=== PATIENT | female | born 1995 | race Asian ===

== ENCOUNTER → 2017-04-20 | Day surgery (SDC) | payer BC, OTHER ==
[~2017-04-20] MED LIST: FLU VACC QS2017-18 36 mo. & older 0.5 ML SYRINGE IM ONE
[2017-04-20 13:13] VITALS: BMI 25.1
--- NOTE | 2017-04-20 14:21 | PRG ---
DATE OF SERVICE: 04/20/2017 CHIEF COMPLAINT: Vaginal bleeding. HISTORY OF PRESENT ILLNESS: The patient is a 22-year-old G1, P0 female with an intrauterine at 38 weeks and 1 day, who is presenting to Labor and Delivery today with vaginal bleeding. She reports that she began having spotting last when she had her cervix checked and her membranes swept. She was told that was to be expected. Over the weekend, the patient reported some more spotting with some really small clots as she describes them. She called the office this morning and notified them of her concerns, who again reassured her of these findings with the recommendation to seek evaluation at Labor and Delivery should she have active vaginal bleeding. Shortly after the phone call the patient went to the bathroom and felt like she had felt blood coming from her vagina into the toilet and came here for evaluation. She reports that between her going to the bathroom and her visit with us she had a piece of toilet paper to protect her underwear, which had only some spotting after 2 hours. The patient denies any other leakage of fluid, any change in discharge. She denies any falls or trauma to her belly. She denies any fever, headache, chest pain, shortness of breath, nausea, vomiting, diarrhea. She does report constipation. She denies any new skin rashes. PAST MEDICAL HISTORY: She has a history of gastritis, resulting in a colonoscopy and EGD several years ago and a history of depression in high school. PAST SURGICAL HISTORY: None. OBSTETRIC HISTORY: This is her first . ALLERGIES: PENICILLIN. MEDICATIONS: vitamins. OB LABS: Blood type is B positive, antibody screen is negative. HIV is nonreactive. Third trimester HIV is nonreactive. RPR is nonreactive. Third trimester RPR is nonreactive. Hepatitis B surface antigen is nonreactive. She is rubella immune, one hour Glucola was 105 and GBS status is unavailable at this time. REVIEW OF SYSTEMS: Per HPI. PHYSICAL EXAMINATION: VITAL SIGNS: Blood pressure 132/77, heart rate of 85, respiratory rate of 18, temperature 98.4. GENERAL: She appears to be in no acute distress. She is alert and oriented, and cooperative and pleasant to interact with. HEENT: Head is normocephalic, atraumatic. LUNGS: Clear to auscultation bilaterally. HEART: Regular rate and rhythm. ABDOMEN: Soft, gravid, nontender to palpation. EXTREMITIES: Nontender, nonedematous. The patient has some mild CVA tenderness on her right side which she reports is from a "swollen kidney" She was evaluated previously by her OB for right-sided pain and pyelonephritis and renal lithiasis was ruled out. She does report that her pain is improving. Cervical exam per nursing staff is 2-1/2, 85%, -2 station, which is a change from her reported 2, 75% from last . heart tracing performed for vaginal bleeding for a duration of about 30 minutes, was noted to have a baseline in the 130s with moderate long-term variability, positive accelerations, no decelerations. Tocometer showing some irritability with contractions, the patient is feeling them as some tightness in her abdomen, but no pain. ASSESSMENT AND PLAN: The patient is a 22-year-old G1, P0 female with an intrauterine at 38 weeks and a day with bloody show. The patient has been given reassurance. Her baby has a category 1 tracing with a reactive NST. She has been counseled to keep her appointment with Dr. Chavez as scheduled. CLARITZA
== END ==
LOC: L&D/OP 12:35
PROVIDERS: ATTEND Student in an Organized Health Care Education/Training Program
DX: O46.93 Antepartum hemorrhage, unspecified, third trimester (principal); O99.89 Other specified diseases and conditions complicating pregnancy, childbirth and the puerperium; R10.819 Abdominal tenderness, unspecified site; Z3A.38 38 weeks gestation of pregnancy; Z79.899 Other long term (current) drug therapy; Z88.0 Allergy status to penicillin; Z98.890 Other specified postprocedural states
CPT/HCPCS: J0595

== ENCOUNTER 2017-04-21 07:44 | Inpatient (IN) | payer BC, OTHER ==
[2017-04-21 08:26] VITALS: BMI 25.1
[2017-04-21] MEDS ORDERED: Promethazine HCl 25 MG/ML VIAL IM PRN ×2 (08:46→11:58)
[2017-04-21] MEDS ORDERED: LR / Pitocin 40 units/1000 ml 1,000 ML IV PRN (08:46)
[2017-04-21] MEDS ORDERED: Ibuprofen 800 MG TAB PO PRN (08:46)
[2017-04-21] MEDS ORDERED: Lidocaine 1% (PF) 30 ML VIAL SC PRN (08:46)
[2017-04-21] MEDS ORDERED: HYDROcodone/Acetaminophen 5/325 mg Tablet PO PRN ×3 (08:46→18:58)
--- NOTE | 2017-04-21 08:50 | PDOC.LDHP ---
Labor and Delivery H&P HPI: 22 yo G1 at 38 weeks, patient of Dr Sandy Chavez who was seen in L&D yesterday for latent labor and was 2cm then. Arrives now to L&D with further contractions and noted to be 5cm in triage. Direct admit for Dr Chavez. She has been notified and awaiting response. Patient underwent complete REVIEW OF SYSTEMS and negative for GARCIA, VB, ROM, visual changes, epigastric pain. No issues reported. GBS neg. Current gestational age (weeks): 38 (2 days) Dating criteria: last menstrual period Grav: 1 Para: 0 Current complications: none Abnormal US findings: No Current medications: none Allergies/Adverse Reactions: Allergies Allergy/AdvReac Type Severity Reaction Status Date / Time Penicillins Allergy Severe Verified 04/21/17 08:27 Hives Social history: none - Physical Exam Vital signs reviewed and normal: yes (BP 122/72) Heart: RRR Lungs: nonlabored breathing Abdomen: gravid (EFW approx 6 pounds) FHT: category 1 - Vaginal Exam cm dilated: 5 (BOWI) Effacement: 90% Station: -1 - Assessment L&D Assessment: term patient in labor - Plan Plan: admit to L&D, informed consent obtained, anesthesia consult for pain management, other (Primary MD notified, awaiting confirmation of reciept.)
[2017-04-21] MEDS: Lactated Ringer's 1,000 ML IV SCH ×3 (09:00→13:24)
[2017-04-21 09:45] LABS: Hemoglobin 12.9 g/dL (12.0-16.0); Mean Corpuscular HGB CONC 34.3 g/dL (32.0-36.0); Mean Corpuscular Hemoglobin 29.4 pg (27.0-31.0); Mean Corpuscular Volume 85.7 fl (81.0-99.0); Mean Platelet Volume 8.6 fL (7.4-10.4); Platelet Count 201 thou/uL (130-400); RBC Distribution Width 11.7 % (11.5-14.5); Red Blood Cell (RBC) Count 4.39 mill/uL (4.20-5.40); White Blood Cell (WBC) Count 11.2 thou/uL (4.8-10.8)
[2017-04-21 10:23] LABS: HBSAg Index 0.16 S/CO (0-0.99); HIV (1/2) Antibody/Antigen Non-Reactive (NonReactive); HIV 1/2 INDEX 0.34 S/CO (<1.00); Hep B Surf Ag Non-Reactive S/CO (NonReactive)
[2017-04-21 10:27] LABS: Syphilis Antibody Nonreactive (Nonreactive); Syphilis Antibody Index 0.04 S/CO (<1.00 Non-Reactive)
[2017-04-21] MEDS ORDERED: Fentanyl 4 mcg/Marc 0.1% Cadd 100 ML EPIDURAL SCH (10:45)
[2017-04-21] MEDS ORDERED: Naloxone HCl 0.4 mg/ml Vial IVP PRN ×2 (11:58)
[2017-04-21] MEDS ORDERED: Acetaminophen 325 MG TAB PO PRN (11:58)
[2017-04-21] MEDS ORDERED: diphenhydrAMINE 50 MG/ML VIAL IVP PRN (11:58)
[2017-04-21] MEDS ORDERED: Ondansetron HCl/PF 4 MG/2 ML Vial IVP PRN ×2 (11:58→18:58)
[2017-04-21] MEDS ORDERED: ePHEDrine/0.9% NaCl/PF SYRINGE 50 mg/10 ml SLOW IVP PRN (11:58)
[2017-04-21] MEDS ORDERED: Eucerin (Mineral Oil/Petrolatum,White) 30 gm Jar TOP PRN (11:58)
[2017-04-21] MEDS ORDERED: Lactated Ringer's 500 ML IV PRN (11:58)
[2017-04-21] MEDS ORDERED: Communication Order-Pharmacy FS SCH (12:00)
[2017-04-21] MEDS ORDERED: Fentanyl 4mcg/Marcaine 0.1% Cassette 100 ML EPIDURAL SCH (12:00)
[2017-04-21] MEDS ORDERED: LR 500 ML/Oxytocin 10 units 500 ML ONE (12:31)
[2017-04-21] MEDS ORDERED: Acetaminophen 325 MG TAB PO SCH (12:45)
[2017-04-21] MEDS ORDERED: LR 500 ML/Oxytocin 10 units 500 ML IV SCH (13:00)
[2017-04-21] MEDS ORDERED: FLU VACC QS2017-18 36 mo. & older 0.5 ML SYRINGE IM ONE (14:00)
--- NOTE | 2017-04-21 16:03 | PDOC.OPDEL ---
OB Operative/Delivery Note Delivery Dr/Surgeon: Scott Assist: n/a Pre-Delivery Diagnosis: active labor Procedure/Post Delivery Dx: spontaneous vaginal delivery Weeks gestation: 38 Anesthesia: epidural - Findings A Sex: female - 1 min: 9 - 5 min: 9 - Additional Findings/Plan Placenta delivered: spontaneous Repaired Obstetrical Laceration: 1st degree (repaired with 2-0 vicryl, hemostasis noted) Estimated blood loss: 400 Post delivery plan: routine recovery
[2017-04-21] MEDS ORDERED: Milk Of Magnesia 30 ML UDCUP PO PRN (18:58)
[2017-04-21] MEDS ORDERED: LR / Pitocin 40 units/1000 ml 1,000 ML IV SCH (18:58)
[2017-04-21] MEDS ORDERED: Bisacodyl 10 MG SUPP PR PRN (18:58)
[2017-04-21] MEDS ORDERED: Benzocaine/Menthol 20-0.5% 60 ML CAN TOP PRN (18:58)
[2017-04-21] MEDS ORDERED: Lanolin Ointment 7 GM TUBE TOP PRN (18:58)
[2017-04-21] MEDS ORDERED: diphenhydrAMINE 25 MG CAP PO PRN (18:58)
[2017-04-21] MEDS ORDERED: Preparation H Ointment 28 GM TUBE PR PRN (18:58)
[2017-04-21] MEDS ORDERED: Ferrous Sulfate 325 MG TAB PO SCH (20:00)
[2017-04-21] MEDS: Ibuprofen 800 MG TAB PO SCH (20:47)
[2017-04-21] MEDS: Docusate Calcium (SURFAK) 240 MG CAP PO SCH (20:47)
[2017-04-21] MEDS ORDERED: Bupivacaine 0.25% HCL 30 ML VIAL ONE (21:32)
[2017-04-22] MEDS: Ibuprofen 800 MG TAB PO SCH ×3 (05:51→21:33)
[2017-04-22] MEDS: Prenatal Vitamin 1 TAB PO SCH (07:48)
[2017-04-22] MEDS: HYDROcodone/Acetaminophen 5/325 mg Tablet PO PRN ×2 (07:48→13:39)
[2017-04-22] MEDS: Ferrous Sulfate 325 MG TAB PO SCH ×2 (07:48→09:25)
[2017-04-22] MEDS: Docusate Calcium (SURFAK) 240 MG CAP PO SCH ×2 (07:48→21:33)
--- NOTE | 2017-04-22 10:04 | PDOC.PP ---
Post Progress Note Post Day #: 1 PO intake tolerated: yes Flatus: yes Ambulation: yes Vital Signs (12 hours) Temp Pulse Resp BP 04/22/17 07:40 98.2 F 96 16 119/66 04/22/17 04:00 98.3 F 91 14 112/70 04/21/17 23:56 99.2 F 101 H 16 114/64 Weight Weight 142 lb - Physical Examination General: NAD Cardiovascular: RRR Respiratory: non-labored breathing Abdominal: no distention, appropriately TTP Fundus firm & at: umb Neurological: no gross focal deficits Psychiatric: normal affect Result Diagrams: 04/21/17 09:00 Additional Labs: Post Labs Blood Type B POSITIVE 04/21/17 09:00 Hep Bs Antigen Non-Reactive S/CO (NonReactive) 04/21/17 09:00 (1) Term delivered Code(s): O80 - ENCOUNTER FOR FULL-TERM UNCOMPLICATED DELIVERY Status: Acute - Assessment/Plan VSSAF Doing well, lochia = menses , LC consult today Rh pos RImm Cont PP care, home tomorrow
[2017-04-23] MEDS: HYDROcodone/Acetaminophen 5/325 mg Tablet PO PRN (01:47)
[2017-04-23] MEDS: Ibuprofen 800 MG TAB PO SCH (06:04)
--- NOTE | 2017-04-23 07:44 | PDOC.PP ---
Post Progress Note Post Day #: 2 PO intake tolerated: yes Flatus: yes Ambulation: yes Vital Signs (12 hours) Temp Pulse Resp BP Pulse Ox 04/22/17 19:55 98.8 F 101 H 18 132/69 98 Weight Weight 142 lb - Physical Examination General: NAD Cardiovascular: RRR Respiratory: non-labored breathing Abdominal: appropriately TTP Fundus firm & at: umb Skin: no rash Neurological: no gross focal deficits Psychiatric: normal affect Result Diagrams: 04/21/17 09:00 Additional Labs: Post Labs Blood Type B POSITIVE 04/21/17 09:00 Hep Bs Antigen Non-Reactive S/CO (NonReactive) 04/21/17 09:00 (1) Term delivered Code(s): O80 - ENCOUNTER FOR FULL-TERM UNCOMPLICATED DELIVERY Status: Acute - Assessment/Plan VSSAF Doing well no issues, , going well Rh pos RImm DC home fu 6wk
[2017-04-23 09:22] VITALS: BP 118/69; TEMP 98.7
[2017-04-23] MEDS: Docusate Calcium (SURFAK) 240 MG CAP PO SCH (09:35)
[2017-04-23] MEDS: Prenatal Vitamin 1 TAB PO SCH (09:35)
[2017-04-23] MEDS: Ferrous Sulfate 325 MG TAB PO SCH (09:35)
[2017-04-23] MEDS ORDERED: FLU VACC QS2017-18 36 mo. & older 0.5 ML SYRINGE IM ONE (12:30)
== END 2017-04-23 12:35 | disposition home or self-care (01) | DRG 775 ==
LOC: L&D/OP 07:44 → L&D 08:42 → 3SW 18:37
PROVIDERS: ADMIT Obstetrics & Gynecology; ATTEND Obstetrics & Gynecology
PROC: 10E0XZZ Delivery of Products of Conception, External Approach (ICD-10-PCS; principal; 2017-04-21)
PROC: 0HQ9XZZ Repair Perineum Skin, External Approach (ICD-10-PCS; 2017-04-21)
DX: O70.0 First degree perineal laceration during delivery (principal); Z37.0 Single live birth; Z3A.38 38 weeks gestation of pregnancy
CPT/HCPCS: 51702; 85027; 86780; 87340; 87389; 90471; 90682; 99285; G0008; J2001; J2405; J7120; Q2036; S0020

== ENCOUNTER 2017-10-20 14:41 | Outpatient (CLI) | payer BC ==
--- NOTE | 2017-10-20 15:22 | RAD ---
LUMBAR SPINE 3 VIEWS: HISTORY: M54.42. Chronic back pain. COMPARISON: Lumbar spine radiograph 2015. FINDINGS: No fracture. No malalignment. Five [id number] lumbar-type vertebrae. No listhesis. The paraspinal soft tissues are unremarkable. IMPRESSION: No acute abnormality. POS: AGGIE
== END 2017-10-20 14:42 | disposition home or self-care (01) ==
LOC: SCSRAD 14:41
PROVIDERS: ATTEND Family Medicine
DX: M54.42 Lumbago with sciatica, left side (principal)
CPT/HCPCS: 72100

== ENCOUNTER 2017-11-08 12:36 | Outpatient (CLI) | payer BC ==
--- NOTE | 2017-11-08 15:25 | MRI ---
MRI OF THE LUMBAR SPINE: DATE: 11/08/17. HISTORY: Chronic back pain with left-sided sciatica. TECHNIQUE: Multiplanar multisequence MR imaging of the lumbar spine provided without contrast. FINDINGS: The sagittal STIR imaging demonstrates no focal area of osseous marrow edema. On the basis of 5 lumb ar-type vertebral bodies, the conus medullaris terminates at T12-L1. No significant anterolisthesis or retrolisthesis noted within the lumbar spine. T12-L1: Intervertebral disk height and signal intensity within normal limits with o central canal or neural foraminal stenosis. L1-2: Intervertebral disk height and signal intensity within normal limits. No significant central canal or neural foraminal stenosis. L2-3: Intervertebral disk height and signal intensity within normal limits with no central canal or neural foraminal stenosis. L3-4: Intervertebral disk height and signal intensity within normal limits. No central canal or leigh ann ral foraminal stenosis. L4-5: There is disk space narrowing, disk desiccation and disk bulge with a central/left paracentral annular tear and associated disk protrusion in the central and left paracentral regions. There is m ild central canal stenosis/left lateral recess stenosis. No significant neural foraminal stenosis no ellis on either side. L5-S1: Intervertebral disk height and signal intensity within normal limits with no significant cent ral canal or neural foraminal stenosis. The imaged retroperitoneal structures are grossly unremarkable. IMPRESSION: Disk disease present at the L4-5 level with disk bulge, disk desiccation, annular tear, and central/l eft paracentral disk protrusion. POS: AGGIE
== END 2017-11-08 12:37 | disposition home or self-care (01) ==
LOC: TBSIIMAG 12:36
PROVIDERS: ATTEND Family Medicine
DX: M54.42 Lumbago with sciatica, left side (principal); M51.26 Other intervertebral disc displacement, lumbar region; M51.9 Unspecified thoracic, thoracolumbar and lumbosacral intervertebral disc disorder
CPT/HCPCS: 72148

== ENCOUNTER 2021-12-26 05:50 | Emergency (ER) | payer BC, OTHER ==
[2021-12-26] MEDS ORDERED: Ondansetron PF 4 MG/2 ML Vial ONE (06:08)
[2021-12-26] MEDS ORDERED: Lorazepam 2 MG/ML VIAL ONE (06:08)
== END 2021-12-26 07:01 | disposition home or self-care (01) ==
LOC: ERS 05:50
DX: F41.1 Generalized anxiety disorder (principal)
CPT/HCPCS: 96374; 96375; J2060; J2405